=== PATIENT | male | born 1990 ===

== ENCOUNTER 2017-08-14 07:48 | Day surgery (SDC) | payer OTHER ==
[2017-08-14 08:28] VITALS: BMI 24.3
[2017-08-14] MEDS ORDERED: Propofol 10 mg/ml Inj (20 ML) ONE ×2 (10:13→10:20)
[2017-08-14] MEDS ORDERED: Lidocaine Hydrochloride 10 ML INJ ONE (10:13)
[2017-08-14] MEDS ORDERED: Albuterol HFA 90 mcg/actuation (8 g) ONE (10:33)
[2017-08-14 10:41] VITALS: TEMP 97.8
[2017-08-14 11:41] VITALS: RESP 14; O2SAT 98
[2017-08-14 11:44] VITALS: BP 92/41; PULSE 70
== END 2017-08-14 11:35 | disposition home or self-care (01) ==
LOC: C.ENDO 07:48
PROVIDERS: ATTEND Internal Medicine
DX: R10.13 Epigastric pain (principal); B96.81 Helicobacter pylori [H. pylori] as the cause of diseases classified elsewhere; K29.50 Unspecified chronic gastritis without bleeding; K31.7 Polyp of stomach and duodenum; K44.9 Diaphragmatic hernia without obstruction or gangrene; F17.210 Nicotine dependence, cigarettes, uncomplicated; Z79.899 Other long term (current) drug therapy
CPT/HCPCS: 43239; 88305; 88313; 88342; J2001; J2704; J7040